=== PATIENT | female | born 1970 | race Caucasian/White ===

== ENCOUNTER 2017-02-09 14:15 | Emergency (ER) | payer OTHER, MEDICAID ==
[2017-02-09] MEDS ORDERED: Sodium Chloride 0.9% 1,000 ML IV ONE (14:52)
[2017-02-09] MEDS ORDERED: Sodium Chloride 0.9% 10 ML Syringe FLUSH PRN (14:52)
[2017-02-09] MEDS ORDERED: Sodium Chloride 0.9% 2.5 ML Syringe FLUSH PRN (14:52)
--- NOTE | 2017-02-09 14:58 | EDM.PDOC ---
<Scarlet Mireles - Last Filed: 02/09/17 18:50> ED HPI GI/ABDOMINAL - General Chief Complaint: Abdominal Pain Stated Complaint: RT SIDE HURTS Time Seen by Provider: 02/09/17 14:16 Source of Information: Reports: Patient History Limitations: Reports: No limitations - History of Present Illness INITIAL COMMENTS - FREE TEXT/NARRATIVE: History of present illness: [] Patient woke up this morning with right-sided abdominal pain that has worsened throughout the day. She feels nauseous but denies any vomiting, diarrhea, fevers, difficulty urinating, vaginal discharge or abnormal bleeding. She does have chills. Patient denies a history of ovarian cysts. Patient has had a cholecystectomy. Review of systems: As per history of present illness and below otherwise all systems reviewed and negative. Past medical history: As per history of present illness and as reviewed below otherwise noncontributory. Surgical history: As per history of present illness and as reviewed below otherwise noncontributory. Social history: No reported history of drug or alcohol abuse. Family history: As per history of present illness and as reviewed below otherwise noncontributory. Physical exam: General: Well developed, well nourished in NAD HEENT: Atraumatic, normocephalic, pupils reactive, negative for conjunctival pallor or scleral icterus, mucous membranes moist, throat clear, neck supple, nontender, trachea midline. Lungs: Clear to auscultation, breath sounds equal bilaterally, chest nontender. Heart: S1S2, regular, negative for clicks, rubs, or JVD. Abdomen: Soft, nondistended, severe tenderness in right lower quadrant and pelvic area. There is no rebound or guarding. Negative for masses or hepatosplenomegaly. Negative for costovertebral tenderness. Pelvis: Stable nontender. Genitourinary: Deferred. Rectal: Deferred. Extremities: Atraumatic, negative for cords or calf pain. Neurovascular unremarkable. Neuro: Awake, alert, oriented. Cranial nerves II through XII unremarkable. Cerebellum unremarkable. Motor and sensory unremarkable throughout. Exam nonfocal. Diagnostics: [] CBC CMP lipase and urine, normal, CT shows a normal appendix small ovarian cyst in 1.9 cm left adrenal nodule. Ultrasound was done and results are pending at this time Therapeutics: [] Patient was IV hydrated and required narcotics for pain control. Impression: [] Plan: [] Definitive disposition and diagnosis as appropriate pending reevaluation and review of above. - Related Data Allergies/ADRs: Allergies Allergy/AdvReac Type Severity Reaction Status Date / Time fentanyl Allergy Hives Verified 02/09/17 15:32 Home Meds: Home Meds Hydrochlorothiazide 37 mg PO DAILY 02/09/17 [History] Losartan [Cozaar] 50 mg PO DAILY 02/09/17 [History] Ondansetron HCl [Zofran] 4 mg PO Q8HR PRN #12 tablet 02/09/17 [Rx] glipiZIDE [Glucotrol XL] 10 mg PO DAILY 02/09/17 [History] metFORMIN HCl [Metformin HCl] 1,000 mg PO BID 02/09/17 [History] traMADol [Ultram] 50 mg PO Q8H PRN #12 tablet 02/09/17 [Rx] Past Medical History Cardiovascular History: Reports: Hypertension Endocrine/Metabolic History: Reports: Diabetes, type II Social & Family History - Tobacco Use Smoking Status *Q: Never Smoker Second Hand Smoke Exposure: No - Recreational Drug Use Recreational Drug Use: No ED ROS GENERAL - Review of Systems Review Of Systems: See Below (See history of present illness) ED EXAM, GI/ABD - Physical Exam Exam: See Below (See history of present illness) Course - Vital Signs Last Recorded V/S: Last Vital Signs Temp 37.3 C 02/09/17 19:17 Pulse 83 02/09/17 19:17 Resp 18 02/09/17 19:17 BP 98/49 L 02/09/17 19:17 Pulse Ox 98 02/09/17 19:17 - Orders/Labs/Meds Orders: Active Orders 24 hr Category Date Time Status Nothing per Oral Now Diet [DIET] Diet 02/09/17 Dinner Active Abdomen Pelvis w Cont [CT] Stat Exams 02/09/17 15:52 Taken Pelvis Non OB Ltd [US] Stat Exams 02/09/17 17:51 Taken HYDROmorphone [Dilaudid] Med 02/09/17 17:57 Active 0.5 mg IVPUSH Q1H PRN Morphine Med 02/09/17 15:50 Active 4 mg IVPUSH ASDIRECTED PRN Sodium Chloride 0.9% [Saline Flush] Med 02/09/17 14:52 Active 10 ml FLUSH ASDIRECTED PRN Sodium Chloride 0.9% [Saline Flush] Med 02/09/17 14:52 Active 2.5 ml FLUSH ASDIRECTED PRN Peripheral IV Insertion Adult [OM.PC] Stat Oth 02/09/17 14:52 Ordered Medication Orders Hydromorphone HCl (Dilaudid) 0.5 mg IVPUSH Q1H PRN PRN Reason: Pain Last Admin: 02/09/17 18:06 Dose: 0.5 mg Morphine Sulfate (Morphine) 4 mg IVPUSH ASDIRECTED PRN PRN Reason: Pain Stop: 02/11/17 15:51 Last Admin: 02/09/17 18:39 Dose: 4 mg Admin: 02/09/17 17:19 Dose: 4 mg Admin: 02/09/17 16:04 Dose: 4 mg Sodium Chloride (Saline Flush) 10 ml FLUSH ASDIRECTED PRN PRN Reason: Keep Vein Open Sodium Chloride (Saline Flush) 2.5 ml FLUSH ASDIRECTED PRN PRN Reason: Keep Vein Open Labs: Laboratory Tests 02/09/17 02/09/17 02/09/17 Range/Units 15:00 15:00 15:10 WBC 7.45 (4.0-11.0) K/uL RBC 4.27 L (4.30-5.90) M/uL Hgb 11.4 L (12.0-16.0) g/dL Hct 35.7 L (36.0-46.0) % MCV 83.6 (80.0-98.0) fL MCH 26.7 L (27.0-32.0) pg MCHC 31.9 (31.0-37.0) g/dL RDW Std Deviation 43.7 (28.0-62.0) fl RDW Coeff of Jaylan 15 (11.0-15.0) % Plt Count 233 (150-400) K/uL MPV 11.00 (7.40-12.00) fL Neut % (Auto) 57.7 (48.0-80.0) % Lymph % (Auto) 25.0 (16.0-40.0) % [place] % (Auto) 10.5 (0.0-15.0) % Eos % (Auto) 6.4 (0.0-7.0) % Baso % (Auto) 0.4 (0.0-1.5) % Neut # 4.3 (1.4-5.7) K/uL Lymph # 1.9 (0.6-2.4) K/uL [place] # 0.8 (0.0-0.8) K/uL Eos # 0.5 (0.0-0.7) K/uL Baso # 0.0 (0.0-0.1) K/uL Nucleated RBC % 0.0 /100WBC Nucleated RBCs # 0 K/uL Sodium 139 (136-146) mmol/L Potassium 3.5 (3.5-5.1) mmol/L Chloride 101 (98-110) mmol/L Carbon Dioxide 25 (21-31) mmol/L BUN 18 (6.0-23.0) mg/dL Creatinine 1.0 (0.6-1.5) mg/dL Est Cr Clr Drug Dosing TNP Estimated GFR (MDRD) 59.2 ml/min Glucose 132 H (60-110) mg/dL Calcium 9.6 (8.8-10.8) mg/dL Total Bilirubin 0.7 (0.1-1.5) mg/dL AST 25 (5-40) IU/L ALT 28 (8-54) IU/L Alkaline Phosphatase 69 (40-150) Total Protein 7.2 (6.0-8.0) g/dL Albumin 4.1 (3.5-5.0) g/dL Globulin 3.1 (2.0-3.5) g/dL Albumin/Globulin Ratio 1.3 (1.3-2.8) Lipase 21 (7-80) U/L Urine Color YELLOW Urine Appearance HAZY Urine pH 6.0 (5.0-8.0) Ur Specific [place] 1.020 (1.001-1.035) Urine Protein NEGATIVE (NEGATIVE) mg/dL Urine Glucose (UA) NEGATIVE (NEGATIVE) mg/dL Urine Ketones NEGATIVE (NEGATIVE) mg/dL Urine Occult Blood NEGATIVE (NEGATIVE) Urine Nitrite NEGATIVE (NEGATIVE) Urine Bilirubin NEGATIVE (NEGATIVE) Urine Urobilinogen 0.2 (<2.0) EU/dL Ur Leukocyte Esterase NEGATIVE (NEGATIVE) Urine RBC 0-1 (0-2/HPF) Urine WBC 0-2 (0-5/HPF) Ur Epithelial Cells MODERATE (NONE-FEW) Urine Bacteria FEW (NEGATIVE) Urine HCG, Qual (NEGATIVE) 02/09/17 Range/Units 15:10 WBC (4.0-11.0) K/uL RBC (4.30-5.90) M/uL Hgb (12.0-16.0) g/dL Hct (36.0-46.0) % MCV (80.0-98.0) fL MCH (27.0-32.0) pg MCHC (31.0-37.0) g/dL RDW Std Deviation (28.0-62.0) fl RDW Coeff of Jaylan (11.0-15.0) % Plt Count (150-400) K/uL MPV (7.40-12.00) fL Neut % (Auto) (48.0-80.0) % Lymph % (Auto) (16.0-40.0) % [place] % (Auto) (0.0-15.0) % Eos % (Auto) (0.0-7.0) % Baso % (Auto) (0.0-1.5) % Neut # (1.4-5.7) K/uL Lymph # (0.6-2.4) K/uL [place] # (0.0-0.8) K/uL Eos # (0.0-0.7) K/uL Baso # (0.0-0.1) K/uL Nucleated RBC % /100WBC Nucleated RBCs # K/uL Sodium (136-146) mmol/L Potassium (3.5-5.1) mmol/L Chloride (98-110) mmol/L Carbon Dioxide (21-31) mmol/L BUN (6.0-23.0) mg/dL Creatinine (0.6-1.5) mg/dL Est Cr Clr Drug Dosing Estimated GFR (MDRD) ml/min Glucose (60-110) mg/dL Calcium (8.8-10.8) mg/dL Total Bilirubin (0.1-1.5) mg/dL AST (5-40) IU/L ALT (8-54) IU/L Alkaline Phosphatase (40-150) Total Protein (6.0-8.0) g/dL Albumin (3.5-5.0) g/dL Globulin (2.0-3.5) g/dL Albumin/Globulin Ratio (1.3-2.8) Lipase (7-80) U/L Urine Color Urine Appearance Urine pH (5.0-8.0) Ur Specific [place] (1.001-1.035) Urine Protein (NEGATIVE) mg/dL Urine Glucose (UA) (NEGATIVE) mg/dL Urine Ketones (NEGATIVE) mg/dL Urine Occult Blood (NEGATIVE) Urine Nitrite (NEGATIVE) Urine Bilirubin (NEGATIVE) Urine Urobilinogen (<2.0) EU/dL Ur Leukocyte Esterase (NEGATIVE) Urine RBC (0-2/HPF) Urine WBC (0-5/HPF) Ur Epithelial Cells (NONE-FEW) Urine Bacteria (NEGATIVE) Urine HCG, Qual NEGATIVE (NEGATIVE) Meds: Medications Generic Name Dose Route Start Last Admin Trade Name Freq PRN Reason Stop Dose Admin Hydromorphone HCl 0.5 mg 02/09/17 17:57 02/09/17 18:06 Dilaudid IVPUSH 0.5 mg Q1H PRN Administration Pain Morphine Sulfate 4 mg 02/09/17 15:50 02/09/17 18:39 Morphine IVPUSH 02/11/17 15:51 4 mg ASDIRECTED PRN Administration Pain Sodium Chloride 10 ml 02/09/17 14:52 Saline Flush FLUSH ASDIRECTED PRN Keep Vein Open Sodium Chloride 2.5 ml 02/09/17 14:52 Saline Flush FLUSH ASDIRECTED PRN Keep Vein Open Discontinued Medications Generic Name Dose Route Start Last Admin Trade Name Freq PRN Reason Stop Dose Admin Sodium Chloride 1,000 mls @ 999 mls/hr 02/09/17 14:52 02/09/17 15:11 Normal Saline IV 02/09/17 15:52 999 mls/hr .Bolus ONE Administration Iopamidol 100 ml 02/09/17 16:17 Isovue Multipack-370 (76%) IVPUSH 02/09/17 16:18 ONETIME STA Ketorolac Tromethamine 30 mg 02/09/17 17:18 02/09/17 17:26 Toradol IVPUSH 02/09/17 17:19 30 mg ONETIME ONE Administration Ondansetron HCl 4 mg 02/09/17 15:51 02/09/17 15:59 Zofran IVPUSH 02/09/17 15:52 4 mg ONETIME ONE Administration Ondansetron HCl 4 mg 02/09/17 19:12 02/09/17 19:16 Zofran IVPUSH 02/09/17 19:13 4 mg ONETIME ONE Administration Departure - Departure Time of Disposition: 18:51 Disposition: Home, Self-Care 01 Clinical Impression: Abdominal pain Qualifiers: Abdominal location: right lower quadrant Qualified Code(s): R10.31 - Right lower quadrant pain Prescriptions: Ondansetron HCl [Zofran] 4 mg PO Q8HR PRN #12 tablet PRN Reason: Nausea traMADol [Ultram] 50 mg PO Q8H PRN #12 tablet PRN Reason: Pain Referrals: PCP,None [Primary Care Provider] - Forms: ED Department Discharge <Vandana Hayes - Last Filed: 02/09/17 19:52> ED HPI GI/ABDOMINAL - History of Present Illness INITIAL COMMENTS - FREE TEXT/NARRATIVE: Discussed the report with the client and her . Have contacted Dr. Masters who has been accepted patient she is to call his office in the morning and he will see her tomorrow. Pain medication hydrocodone 10/325 one every 6 hours when necessary pain Zofran ODT 4 mg one every 6 hours as needed for nausea Call first thing tomorrow morning for Dr. Sonam ERIC [facility] [address] [place] [id number] Departure - Departure Condition: good
[2017-02-09 15:38] LABS: CHLORIDE,CL 101 mmol/L (98-110); SODIUM,NA 139 mmol/L (136-146)
[2017-02-09] MEDS ORDERED: Ondansetron 4 MG/2 ML SDV IVPUSH ONE ×2 (15:51→19:12)
[2017-02-09] MEDS: Morphine 2 MG/ML Syringe IVPUSH PRN ×3 (16:04→18:39)
[2017-02-09] MEDS ORDERED: Iopamidol 755 MG/ML 500 ML Multipack Bottle IVPUSH STA (16:17)
[2017-02-09] MEDS ORDERED: Ketorolac 30 MG/ML SDV IVPUSH ONE (17:18)
[2017-02-09] MEDS ORDERED: HYDROmorphone 1 MG/ML Syringe IVPUSH PRN (17:57)
[2017-02-09 20:22] VITALS: BP 122/63
--- NOTE | 2017-02-12 15:06 | CT ---
EXAM DATE: 02/09/17 PATIENT'S AGE: 46 Patient: MOSES KENT Facility: [place], [place] Site . Site : 1970 Study: CT Abdomen/Pelvis [id number]/13/2017 4:48:37 PM Ordering Physician: Chi Novak Final Report: INDICATION: RLQ PAIN TECHNIQUE: CT scan of the abdomen and pelvis with 100 cc of Isovue-370 given intravenously. FINDINGS: The lung bases are unremarkable. No focal abnormalities identified in the visualized portions of the liver, spleen, pancreas, and right adrenal gland. 1.9 cm left adrenal nodule. Normal appearance of the kidneys. No hydronephrosis. No uroliths. 3.0 cm cyst extending off the right ovary. 2.3 cm cyst in the left ovary. The GI tract is incompletely distended but shows no gross abnormalities. The stomach and GE junction are not well assessed. Normal appendix. Cholecystectomy changes. No bile duct dilation. No retroperitoneal, pelvic sidewall, or mesenteric adenopathy. Mild atherosclerotic vascular calcifications. IMPRESSION: 1. Normal appendix. 2. Small ovarian cysts. 3. 1.9 cm left adrenal nodule. Recommend dedicated adrenal CT scan on a routine basis. Dictated by Curry Chavarria MD @ 02/09/2017 5:06:11 PM Dictated by: Curry Chavarria MD @ 02/09/2017 17:06:20 (Electronic Signature) Report Signed by Proxy and Original Signed Document filed in the Medical Record. [facility]
--- NOTE | 2017-02-12 15:44 | US ---
EXAM DATE: 02/09/17 PATIENT'S AGE: 46 Patient: MOSES KENT Facility: [place], [place] Site . Site : 1970 Study: US Pelvis [id number]/13/2017 6:33:49 PM Ordering Physician: Chi Novak Final Report: INDICATION: Right lower quadrant pain. TECHNIQUE: Ultrasound pelvis complete transabdominal and transvaginal. COMPARISON: CT of the abdomen and pelvis 02/09/2017. FINDINGS: Transabdominal as well as transvaginal imaging was formed. Transvaginal imaging was performed to better evaluate the endometrium and ovaries. The uterus is enlarged and measures 14.5 x 8.0 x 7.1 cm. The endometrium is thickened measuring up to 2.9 cm in thickness. The left ovary measures 4.3 x 3.6 x 3.0 cm and contains 2 dominant follicles measuring less than 2 cm each. The right ovary was difficult to visualize and measured 3.7 x 3.2 x 2.9 cm. Probable dominant 2 cm follicle or cyst. No free fluid or adnexal masses. Nabothian cysts noted within the cervix. Doppler evaluation was performed of the ovaries. Arterial waveform confirmed within the left ovary. Unable to confirm blood flow within the right ovary. This could be technical because of the location. IMPRESSION: 1. The right ovary was difficult to visualize. Probable 2 cm dominant follicle. Could not confirm blood flow within the right ovary by Doppler, but the right ovary is not particularly enlarged. I suspect this is technical. Correlate with clinical symptoms. If necessary, repeat examination could be performed. 2. Thickened endometrium of uncertain etiology. Short interval followup is recommended. Neoplastic etiology is not excluded. 3. Enlarged uterus. Dictated by Nilton German MD @ 02/09/2017 7:15:46 PM Dictated by: Nilton German MD @ 02/09/2017 19:16:19 (Electronic Signature) Report Signed by Proxy and Original Signed Document filed in the Medical Record. [facility]
== END 2017-02-09 20:18 | disposition home or self-care (01) ==
LOC: MW.ED 14:15
DX: R10.31 Right lower quadrant pain (principal); R68.83 Chills (without fever); R11.0 Nausea; I10 Essential (primary) hypertension; E11.9 Type 2 diabetes mellitus without complications; Z88.6 Allergy status to analgesic agent; Z79.899 Other long term (current) drug therapy
CPT/HCPCS: 36415; 74177; 76857; 80053; 81001; 81025; 83690; 85025; 96361; 96374; 96375; 96376; 99284; J1170; J1885; J2270; J2405; J7040

== ENCOUNTER → 2017-02-10 | Outpatient (CLI) | payer OTHER, MEDICAID | LOC: MW.CHOBGYN 10:53 | PROVIDERS: ATTEND Obstetrics & Gynecology | DX: Z12.4 Encounter for screening for malignant neoplasm of cervix (principal); R93.8 Abnormal findings on diagnostic imaging of other specified body structures | CPT/HCPCS: 88305; G0145 ==

== ENCOUNTER 2017-02-26 07:40 | Day surgery (SDC) | payer MEDICAID, OTHER ==
[~2017-02-26 07:40] MED LIST: Lactated Ringers 1,000 ML IV SCH; Sodium Chloride 0.9% 10 ML Syringe FLUSH PRN; Sodium Chloride 0.9% 2.5 ML Syringe FLUSH PRN; ceFAZolin 2 GM in Premix Bag 1 BAG IV ONE
[2017-02-26] MEDS ORDERED: Rocuronium 10 MG/ML 10 ML Syringe ONE (08:53)
[2017-02-26] MEDS ORDERED: Lidocaine 2% 5 ML SDV ONE (08:53)
[2017-02-26] MEDS ORDERED: Ondansetron 4 MG/2 ML SDV ONE (08:53)
--- NOTE | 2017-02-26 08:53 | PCM.PREANE ---
Preanesthetic Assessment - Anesthesia/Transfusion/Family Hx Anesthesia History: Prior Anesthesia Reaction Type of Anesthesia Reaction: Allergy, Other (see below) (states allergy to Fentanyl (hives), can take dilaudid and morphine without problem.) Family History of Anesthesia Reaction: No - Review of Systems General: No Symptoms Pulmonary: No Symptoms Cardiovascular: No Symptoms Gastrointestinal: No symptoms Neurological: No Symptoms Other: Reports: None - Physical Assessment NPO Status Date: 02/25/17 O2 Sat by Pulse Oximetry: 98 Respiratory Rate: 16 Vital Signs: Last Vital Signs Temp 36.8 C 02/26/17 08:19 Pulse 72 02/26/17 08:19 Resp 16 02/26/17 08:19 BP 133/79 02/26/17 08:19 Pulse Ox 98 02/26/17 08:19 Height: 1.63 m Weight: 102.512 kg ASA Class: 2 Mental Status: Alert & Oriented x3 Airway Class: Mallampati = 2 Dentition: Reports: Normal Dentition ROM/Head Extension: Full Lungs: Clear to auscultation, Normal respiratory effort Cardiovascular: Regular Rate, Regular Rhythm - Lab Values: Laboratory Last Values WBC 5.46 K/uL (4.0-11.0) 02/25/17 10:32 RBC 4.33 M/uL (4.30-5.90) 02/25/17 10:32 Hgb 11.8 g/dL (12.0-16.0) L 02/25/17 10:32 Hct 36.8 % (36.0-46.0) 02/25/17 10:32 MCV 85.0 fL (80.0-98.0) 02/25/17 10:32 MCH 27.3 pg (27.0-32.0) 02/25/17 10:32 MCHC 32.1 g/dL (31.0-37.0) 02/25/17 10:32 RDW Std Deviation 47.1 fl (28.0-62.0) 02/25/17 10:32 RDW Coeff of Jaylan 15 % (11.0-15.0) 02/25/17 10:32 Plt Count 221 K/uL (150-400) 02/25/17 10:32 MPV 10.90 fL (7.40-12.00) 02/25/17 10:32 Nucleated RBC % 0.0 /100WBC 02/25/17 10:32 Nucleated RBCs # 0 K/uL 02/25/17 10:32 Sodium 139 mmol/L (136-146) 02/25/17 10:32 Potassium 4.0 mmol/L (3.5-5.1) 02/25/17 10:32 Chloride 103 mmol/L (98-110) 02/25/17 10:32 Carbon Dioxide 25 mmol/L (21-31) 02/25/17 10:32 BUN 18 mg/dL (6.0-23.0) 02/25/17 10:32 Creatinine 1.0 mg/dL (0.6-1.5) 02/25/17 10:32 Est Cr Clr Drug Dosing 59.41 mL/min 02/25/17 10:32 Estimated GFR (MDRD) 59.2 ml/min 02/25/17 10:32 Glucose 170 mg/dL (60-110) H 02/25/17 10:32 POC Glucose 130 mg/dL (60-110) H 02/26/17 08:27 Calcium 9.6 mg/dL (8.8-10.8) 02/25/17 10:32 HCG, Qual NEGATIVE (NEG) 02/25/17 10:32 Blood Type O NEGATIVE 02/25/17 10:32 Antibody Screen NEGATIVE 02/25/17 10:32 - Allergies Allergies/Adverse Reactions: Allergies Allergy/AdvReac Type Severity Reaction Status Date / Time fentanyl Allergy Hives Verified 02/09/17 15:32 - Anesthesia Plan Pre-Op Medication Ordered: None - Acknowledgements Anesthesia Type Planned: General Anesthesia Pt an Appropriate Candidate for the Planned Anesthesia: Yes Alternatives and Risks of Anesthesia Discussed w Pt/Guardian: Yes Pt/Guardian Understands and Agrees with Anesthesia Plan: Yes PreAnesthesia Questionnaire Cardiovascular History: Reports: Hypertension Respiratory History: Reports: Asthma, Other (see below) Other Respiratory History: seasonal asthma Gastrointestinal History: Reports: None Genitourinary History: Reports: Renal calculus Other Genitourinary History: hx kidney stones, stress incontinence 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: Reports: Endocrine/Metabolic History: Reports: Diabetes, type II, Obesity/BMI 30+ - Past Surgical History Head Surgeries/Procedures: Reports: None HEENT Surgical History: Reports: Tonsillectomy GI Surgical History: Reports: Cholecystectomy Musculoskeletal Surgical History: Reports: Shoulder surgery - SUBSTANCE USE Smoking Status *Q: Never Smoker Second Hand Smoke Exposure: No Recreational Drug Use History: No - HOME MEDS Home Medications: Home Meds glipiZIDE [Glucotrol XL] 10 mg PO DAILY 02/09/17 [History] metFORMIN HCl [Metformin HCl] 1,000 mg PO BID 02/09/17 [History] Albuterol Sulfate [Proair Hfa] 1 - 2 puff INH ASDIRECTED PRN 02/23/17 [History] Losartan/Hydrochlorothiazide [Losartan-HCTZ 50-12.5 MG] 1 tab PO BEDTIME [History] rOPINIRole HCl [Requip] 2 mg PO BEDTIME 02/23/17 [History] - CURRENT (IN HOUSE) MEDS Current Meds: Current Medications Lactated Ringer's (Ringers, Lactated) 1,000 mls @ 125 mls/hr IV ASDIRECTED JEFF Last Admin: 02/26/17 08:20 Dose: 125 mls/hr Sodium Chloride (Saline Flush) 10 ml FLUSH ASDIRECTED PRN PRN Reason: Keep Vein Open Sodium Chloride (Saline Flush) 2.5 ml FLUSH ASDIRECTED PRN PRN Reason: Keep Vein Open Discontinued Medications Cefazolin Sodium/Dextrose 2 gm (/ Premix) 50 mls @ 100 mls/hr IV ONETIME ONE Stop: 02/25/17 08:49 Preanesthetic Assessment - PHYSICAL ASSESSMENT O2 Sat by Pulse Oximetry: 98 RR: 16 Vital Signs: Last Vital Signs Temp 36.8 C 02/26/17 08:19 Pulse 72 02/26/17 08:19 Resp 16 02/26/17 08:19 BP 133/79 02/26/17 08:19 Pulse Ox 98 02/26/17 08:19 Height: 1.63 m Weight: 102.512 kg - LAB Values: Laboratory Last Values WBC 5.46 K/uL (4.0-11.0) 02/25/17 10:32 RBC 4.33 M/uL (4.30-5.90) 02/25/17 10:32 Hgb 11.8 g/dL (12.0-16.0) L 02/25/17 10:32 Hct 36.8 % (36.0-46.0) 02/25/17 10:32 MCV 85.0 fL (80.0-98.0) 02/25/17 10:32 MCH 27.3 pg (27.0-32.0) 02/25/17 10:32 MCHC 32.1 g/dL (31.0-37.0) 02/25/17 10:32 RDW Std Deviation 47.1 fl (28.0-62.0) 02/25/17 10:32 RDW Coeff of Jaylan 15 % (11.0-15.0) 02/25/17 10:32 Plt Count 221 K/uL (150-400) 02/25/17 10:32 MPV 10.90 fL (7.40-12.00) 02/25/17 10:32 Nucleated RBC % 0.0 /100WBC 02/25/17 10:32 Nucleated RBCs # 0 K/uL 02/25/17 10:32 Sodium 139 mmol/L (136-146) 02/25/17 10:32 Potassium 4.0 mmol/L (3.5-5.1) 02/25/17 10:32 Chloride 103 mmol/L (98-110) 02/25/17 10:32 Carbon Dioxide 25 mmol/L (21-31) 02/25/17 10:32 BUN 18 mg/dL (6.0-23.0) 02/25/17 10:32 Creatinine 1.0 mg/dL (0.6-1.5) 02/25/17 10:32 Est Cr Clr Drug Dosing 59.41 mL/min 02/25/17 10:32 Estimated GFR (MDRD) 59.2 ml/min 02/25/17 10:32 Glucose 170 mg/dL (60-110) H 02/25/17 10:32 POC Glucose 130 mg/dL (60-110) H 02/26/17 08:27 Calcium 9.6 mg/dL (8.8-10.8) 02/25/17 10:32 HCG, Qual NEGATIVE (NEG) 02/25/17 10:32 Blood Type O NEGATIVE 02/25/17 10:32 Antibody Screen NEGATIVE 02/25/17 10:32 - ALLERGIES Allergies/Adverse Reactions: Allergies Allergy/AdvReac Type Severity Reaction Status Date / Time fentanyl Allergy Hives Verified 02/09/17 15:32
[2017-02-26] MEDS ORDERED: Midazolam 1 MG/ML 2 ML SDV ONE (08:54)
[2017-02-26] MEDS ORDERED: Propofol 200 MG/20 ML SDV ONE (08:54)
[2017-02-26] MEDS ORDERED: Morphine 10 MG/ML Syringe ONE ×2 (08:57→09:45)
[2017-02-26] MEDS ORDERED: HYDROmorphone 2 MG/ML Syringe ONE (08:57)
[2017-02-26] MEDS ORDERED: Water For Injection, Sterile 20 ML ONE (08:58)
[2017-02-26] MEDS ORDERED: Fluorescein 5 ML Vial ONE (09:36)
[2017-02-26] MEDS ORDERED: Octyl 2-Cyanoacrylate 1 Tube ONE (09:36)
[2017-02-26] MEDS ORDERED: Succinylcholine/Normal Saline 200 MG/10 ML Syringe ONE (09:46)
[2017-02-26] MEDS ORDERED: Sodium Chloride 0.9% 20 ML ONE (09:47)
[2017-02-26] MEDS ORDERED: ceFAZolin 1 GM Vial ONE (09:47)
[2017-02-26] MEDS ORDERED: Furosemide 40 MG/4 ML VIAL ONE (09:49)
[2017-02-26] MEDS ORDERED: Neostigmine Methylsulfate 1 MG/ML 5 ML Syringe ONE (09:59)
[2017-02-26] MEDS ORDERED: Calcium Gluconate 10% 1 GM/10 ML SDV ONE (11:32)
[2017-02-26] MEDS ORDERED: Promethazine 25 MG/ML SDV IM PRN (12:18)
[2017-02-26] MEDS ORDERED: Morphine 4 MG/ML Syringe IVPUSH PRN (12:18)
--- NOTE | 2017-02-26 12:25 | PCM.OPNOTE ---
- General Post-Op/Procedure Note Date of Surgery/Procedure: 02/26/17 Operative Procedure(s): TLH BSO cysto Findings: Fibroid uterus Pre Op Diagnosis: menometrorraghia Post-Op Diagnosis: Same Anesthesia Technique: General ET tube Primary Surgeon: Codey Masters Pet House Sitter: Mayra Moss EBL in mLs: 2,000 Complications: Bleeding from the R .Uterin vessles and the R side of the Vaginal cuff. Condition: Good
[2017-02-26] MEDS ORDERED: Morphine 2 MG/ML Syringe IVPUSH PRN (12:41)
[2017-02-26 12:54] LABS: CHLORIDE,CL 108 mmol/L (98-110)
[2017-02-26] MEDS: Ketorolac 30 MG/ML SDV IVPUSH PRN ×2 (13:00→18:07)
[2017-02-26 13:06] LABS: SODIUM,NA 138 mmol/L (136-146)
[2017-02-26] MEDS ORDERED: diphenhydrAMINE 50 MG/ML SDV ONE (13:44)
[2017-02-26] MEDS ORDERED: diphenhydrAMINE 50 MG/ML SDV IVPUSH SCH (13:45)
--- NOTE | 2017-02-26 13:53 | PCM.POSTAN ---
POST ANESTHESIA ASSESSMENT - MENTAL STATUS Mental Status: alert, oriented - RESPIRATORY Respiratory Status: respiratory rate WNL, airway patent, O2 saturation stable, supplemental oxygen - CARDIOVASCULAR CV Status: pulse rate WNL, blood pressure stable - GASTROINTESTINAL GI Status: no symptoms - PAIN Pain Score: 6 (Pt states tolerable) - POST OP HYDRATION Hydration Status: adequate & stable - OBSERVATIONS Free Text/Narrative:: Pt itching - benadryl ordered. Pain controlled to a "tolerable" level per pt. Vitals stable at this time.
[2017-02-26] MEDS ORDERED: Nalbuphine 10 MG/1 ML Vial IVPUSH ONE (14:08)
[2017-02-26] MEDS: Acetaminophen/oxyCODONE 325-5 MG Tab PO PRN ×3 (16:18→22:26)
[2017-02-26] MEDS: Ondansetron 4 MG/2 ML SDV IVPUSH PRN (17:35)
--- NOTE | 2017-02-26 20:58 | OR ---
SURGEON: Codey Masters MD DATE OF PROCEDURE: PREOPERATIVE DIAGNOSES: Menometrorrhagia, fibroid uterus, endometrial hyperplasia without atypia by endometrial biopsy. POSTOPERATIVE DIAGNOSES: Menometrorrhagia, fibroid uterus, endometrial hyperplasia without atypia by endometrial biopsy. OPERATION PERFORMED: Total laparoscopic hysterectomy, laparoscopic bilateral salpingo-oophorectomy, laparoscopic control of right side pelvic wall bleeding, and cystoscopy. CREDIT REVIEW ANALYST: Mayra Moss. ANESTHESIA: General endotracheal intubation by Angel Mehta and Dr. Gibson. ESTIMATED BLOOD LOSS: 2000 mL. Replacement is 2 units of packed cells during the operative procedures. PROCEDURE IN DETAIL: The patient was brought to the OR, properly identified, and after adequate level of general anesthesia, the patient was placed in lithotomy position, prepped and draped in sterile fashion as usual. A weighted speculum was placed in the vagina. The VCare manipulator placed in the uterus for manipulation. The Morse catheter was placed in the bladder for drainage and the operation shifted abdominally. Stab wound done beneath the umbilicus. The Veress needle was placed in the peritoneal cavity and that cavity insufflated with 6 L of carbon dioxide. The skin incision enlarged to accommodate the trocar and utilizing a Visiport technique, the peritoneal cavity was entered. A 10-12 trocar placed in the bladder in the left iliac fossa and 5-mm trocar in the right iliac fossa. Later on, we needed to place one 5 mm trocar suprapubically. The procedure was started by identifying the landmark of the pelvis and started on the left side. The superior pedicle was coagulated and transected using the TABITHA-7 Harmonic scalpel. The tubes and ovary included with the specimen. The round ligament is transected in the same manner and then the anterior leaf of the broad ligament dissected downward medially, pushing the bladder completely away from the operative field. At this time, I repositioned the VCare manipulator to feel the VCare manipulator. Then on the left side, the superior pedicle was taken by using the TABITHA Harmonic scalpel and the anterior leaf of the broad ligament dissected downward medially and the uterine vessel is secured at this time very close to the uterus using the Harmonic scalpel; however, there started some sort of her bleeding and from the left pelvic sidewall and it was felt to be probably from the uterine vessel and visualization became low, but not clear laparoscopically, so I shifted that vaginally and weighted speculum was placed in the vagina and then circular incision in the vaginal mucosa was done and utilizing the electrocautery, the posterior cul-de-sac was entered posteriorly. The anterior cul-de-sac was already anterior and then circular incision in the round vaginal mucosa detaching the cervix from its attachment to the vagina and then the cervix,uterus, and tubes and ovary were removed vaginally and copious amount of suction of the blood and then I proceeded to close the vaginal cuff vaginally using 2-0 Vicryl interrupted suture. After that, the operation shifted abdominally and after thorough suctioning of all of the blood from the peritoneal cavity, it was noticed that there was an area of bleeding from the superior pedicles on the right side and that was picked individually and an Endoloop was applied to it and the bleeding stopped and then it was noticed that there was some area of bleeding in the right pelvic sidewall and then with thorough dissection and irrigation exposing the bleeder, making sure that the ureter is away from harm's way. This bleeder was picked individually and again an Endoloop was applied to the bleeder which is the uterine artery and then the bleeding stopped. Once, I applied the Endoloop, the bleeding completely stopped and then thorough irrigation of the entire abdominal field shows no oozing, no bleeding at this time; however I had to ask the anesthesiologist to give the patient fluorescein and after deflating the abdomen, cystoscopy performed. The bladder was intact. Both ureteric orifices were seen with the dye coming from them. Thus, the patency of both ureters verified and then after I deflated the bladder with the Morse catheter, then reinspection was done laparoscopically, and there was no oozing, no bleeding. So at this time, the procedure ended, and I forgo doing the TVT at this time, because the patient is being on the operative table for an excessive two and half hour. The instrument and sponge count were correct. The patient tolerated the procedure well, went to recovery room in stable and general condition. RICK LEON /[id number]
[2017-02-27] MEDS: Ketorolac 30 MG/ML SDV IVPUSH PRN (02:45)
[2017-02-27] MEDS: Acetaminophen/oxyCODONE 325-5 MG Tab PO PRN (09:37)
[2017-02-27 09:52] VITALS: BP 119/57
--- NOTE | 2017-02-27 10:59 | PCM.SURGPN ---
- General Info Date of Service: 02/27/17 POD#: 1 Functional Status: Reports: pain controlled - Review of Systems General: Reports: No Symptoms HEENT: Reports: no symptoms Pulmonary: Reports: no symptoms Cardiovascular: Reports: No Symptoms Gastrointestinal: Reports: No symptoms Genitourinary: Reports: no symptoms Musculoskeletal: Reports: no symptoms Skin: Reports: no symptoms Neurological: Reports: No Symptoms Psychiatric: Reports: no symptoms - Patient Data Vitals - most recent: Last Vital Signs Temp 37.2 C 02/27/17 09:20 Pulse 81 02/27/17 09:20 Resp 16 02/27/17 09:20 BP 119/57 L 02/27/17 09:20 Pulse Ox 94 L 02/27/17 09:20 Weight - most recent: 102.512 kg I&O - last 24 hours: Intake & Output 02/26/17 02/27/17 02/27/17 22:59 06:59 14:59 Output Total 1150 Balance -1150 Lab Results last 24 hrs: Laboratory Results - last 24 hr 02/25/17 02/25/17 02/26/17 Range/Units 10:32 10:32 11:53 WBC (4.0-11.0) K/uL RBC (4.30-5.90) M/uL Hgb (12.0-16.0) g/dL Hct (36.0-46.0) % MCV (80.0-98.0) fL MCH (27.0-32.0) pg MCHC (31.0-37.0) g/dL RDW Std Deviation (28.0-62.0) fl RDW Coeff of Jaylan (11.0-15.0) % Plt Count (150-400) K/uL MPV (7.40-12.00) fL Neut % (Auto) (48.0-80.0) % Lymph % (Auto) (16.0-40.0) % Avery % (Auto) (0.0-15.0) % Eos % (Auto) (0.0-7.0) % Baso % (Auto) (0.0-1.5) % Neut # (Auto) (1.4-5.7) K/uL Lymph # (Auto) (0.6-2.4) K/uL Avery # (Auto) (0.0-0.8) K/uL Eos # (Auto) (0.0-0.7) K/uL Baso # (Auto) (0.0-0.1) K/uL Nucleated RBC % /100WBC Nucleated RBCs # K/uL INR (0.86-1.11) APTT (18.6-31.3) SEC Fibrinogen (215-411) mg/dL Sodium (136-146) mmol/L Potassium (3.5-5.1) mmol/L Chloride (98-110) mmol/L Carbon Dioxide (21-31) mmol/L BUN (6.0-23.0) mg/dL Creatinine (0.6-1.5) mg/dL Est Cr Clr Drug Dosing mL/min Estimated GFR (MDRD) ml/min Glucose (60-110) mg/dL POC Glucose 195 H (60-110) mg/dL Calcium (8.8-10.8) mg/dL Blood Type O NEGATIVE Antibody Screen NEGATIVE Crossmatch See Detail See Detail 02/26/17 02/26/17 02/26/17 Range/Units 12:08 12:08 12:08 WBC 9.41 (4.0-11.0) K/uL RBC 4.01 L (4.30-5.90) M/uL Hgb 11.4 L (12.0-16.0) g/dL Hct 34.6 L (36.0-46.0) % MCV 86.3 (80.0-98.0) fL MCH 28.4 (27.0-32.0) pg MCHC 32.9 (31.0-37.0) g/dL RDW Std Deviation 47.3 (28.0-62.0) fl RDW Coeff of Jaylan 15 (11.0-15.0) % Plt Count 199 (150-400) K/uL MPV 11.30 (7.40-12.00) fL Neut % (Auto) 64.1 (48.0-80.0) % Lymph % (Auto) 24.7 (16.0-40.0) % Avery % (Auto) 8.1 (0.0-15.0) % Eos % (Auto) 2.8 (0.0-7.0) % Baso % (Auto) 0.3 (0.0-1.5) % Neut # (Auto) 6.0 H (1.4-5.7) K/uL Lymph # (Auto) 2.3 (0.6-2.4) K/uL Avery # (Auto) 0.8 (0.0-0.8) K/uL Eos # (Auto) 0.3 (0.0-0.7) K/uL Baso # (Auto) 0.0 (0.0-0.1) K/uL Nucleated RBC % 0.0 /100WBC Nucleated RBCs # 0 K/uL INR 1.09 (0.86-1.11) APTT 24.5 (18.6-31.3) SEC Fibrinogen 232 (215-411) mg/dL Sodium 138 (136-146) mmol/L Potassium 4.2 (3.5-5.1) mmol/L Chloride 108 (98-110) mmol/L Carbon Dioxide 17 L (21-31) mmol/L BUN 14 (6.0-23.0) mg/dL Creatinine 0.8 (0.6-1.5) mg/dL Est Cr Clr Drug Dosing 74.26 mL/min Estimated GFR (MDRD) > 60.0 ml/min Glucose 208 H (60-110) mg/dL POC Glucose (60-110) mg/dL Calcium 8.0 L (8.8-10.8) mg/dL Blood Type Antibody Screen Crossmatch 02/27/17 02/27/17 Range/Units 05:12 05:12 WBC 9.26 (4.0-11.0) K/uL RBC 3.36 L (4.30-5.90) M/uL Hgb 9.7 L (12.0-16.0) g/dL Hct 28.9 L (36.0-46.0) % MCV 86.0 (80.0-98.0) fL MCH 28.9 (27.0-32.0) pg MCHC 33.6 (31.0-37.0) g/dL RDW Std Deviation 47.6 (28.0-62.0) fl RDW Coeff of Jaylan 15 (11.0-15.0) % Plt Count 185 (150-400) K/uL MPV 11.10 (7.40-12.00) fL Neut % (Auto) 74.7 (48.0-80.0) % Lymph % (Auto) 15.9 L (16.0-40.0) % Avery % (Auto) 7.8 (0.0-15.0) % Eos % (Auto) 1.5 (0.0-7.0) % Baso % (Auto) 0.1 (0.0-1.5) % Neut # (Auto) 6.9 H (1.4-5.7) K/uL Lymph # (Auto) 1.5 (0.6-2.4) K/uL Avery # (Auto) 0.7 (0.0-0.8) K/uL Eos # (Auto) 0.1 (0.0-0.7) K/uL Baso # (Auto) 0.0 (0.0-0.1) K/uL Nucleated RBC % 0.0 /100WBC Nucleated RBCs # 0 K/uL INR (0.86-1.11) APTT (18.6-31.3) SEC Fibrinogen (215-411) mg/dL Sodium 137 (136-146) mmol/L Potassium 3.5 (3.5-5.1) mmol/L Chloride 102 (98-110) mmol/L Carbon Dioxide 24 (21-31) mmol/L BUN 17 (6.0-23.0) mg/dL Creatinine 1.0 (0.6-1.5) mg/dL Est Cr Clr Drug Dosing 59.41 mL/min Estimated GFR (MDRD) 59.2 ml/min Glucose 146 H (60-110) mg/dL POC Glucose (60-110) mg/dL Calcium 7.9 L (8.8-10.8) mg/dL Blood Type Antibody Screen Crossmatch Med Orders - Current: Current Medications Diphenhydramine HCl (Benadryl) 25 mg IVPUSH .ONETIME JEFF Last Admin: 02/26/17 13:47 Dose: 25 mg Lactated Ringer's (Ringers, Lactated) 1,000 mls @ 125 mls/hr IV ASDIRECTED JEFF Last Admin: 02/26/17 08:20 Dose: 125 mls/hr Ketorolac Tromethamine (Toradol) 30 mg IVPUSH Q6H PRN PRN Reason: Pain (severe 7-10) Stop: 03/03/17 12:18 Last Admin: 02/27/17 02:45 Dose: 30 mg Morphine Sulfate (Morphine) 4 mg IVPUSH Q2H PRN PRN Reason: Pain (severe 7-10) Last Admin: 02/27/17 04:41 Dose: 4 mg Morphine Sulfate (Morphine) 2 mg IVPUSH .Q5MIN PRN PRN Reason: Pain Stop: 03/02/17 12:42 Last Admin: 02/26/17 13:40 Dose: 2 mg Ondansetron HCl (Zofran) 4 mg IVPUSH Q6H PRN PRN Reason: Nausea/Vomiting Last Admin: 02/26/17 17:35 Dose: 4 mg Oxycodone/Acetaminophen (Percocet 325-5 Mg) 2 tab PO Q4H PRN PRN Reason: Pain (moderate 4-6) Last Admin: 02/27/17 09:37 Dose: 2 tab Promethazine HCl (Phenergan) 25 mg IM Q6H PRN PRN Reason: Nausea/Vomiting Last Admin: 02/26/17 18:07 Dose: 25 mg Sodium Chloride (Saline Flush) 10 ml FLUSH ASDIRECTED PRN PRN Reason: Keep Vein Open Sodium Chloride (Saline Flush) 2.5 ml FLUSH ASDIRECTED PRN PRN Reason: Keep Vein Open Discontinued Medications Calcium Gluconate (Calcium Gluconate) Confirm Administered Dose 1 gm .ROUTE .STK -MED ONE Stop: 02/26/17 11:33 Cefazolin Sodium (Ancef) Confirm Administered Dose 2 gm .ROUTE .STK-MED ONE Stop: 02/26/17 09:48 Diphenhydramine HCl (Benadryl) Confirm Administered Dose 50 mg .ROUTE .STK-MED ONE Stop: 02/26/17 13:45 Last Admin: 02/27/17 02:13 Dose: Not Given Fluorescein Sodium (Ak-Fluor) Confirm Administered Dose 5 ml .ROUTE .STK-MED ONE Stop: 02/26/17 09:37 Furosemide (Lasix) Confirm Administered Dose 40 mg .ROUTE .STK-MED ONE Stop: 02/26/17 09:50 Glycopyrrolate () Confirm Administered Dose 1 mg .ROUTE .STK-MED ONE Stop: 02/26/17 10:00 Hydromorphone HCl (Dilaudid) Confirm Administered Dose 2 mg .ROUTE .STK-MED ONE Stop: 02/26/17 08:58 Cefazolin Sodium/Dextrose 2 gm (/ Premix) 50 mls @ 100 mls/hr IV ONETIME ONE Stop: 02/25/17 08:49 Sterile Water (Sterile Water For Injection) Confirm Administered Dose 20 mls @ as directed .ROUTE .STK-MED ONE Stop: 02/26/17 08:59 Sodium Chloride (Normal Saline) Confirm Administered Dose 20 mls @ as directed .ROUTE .STK-MED ONE Stop: 02/26/17 09:48 Lidocaine (Xylocaine-Mpf 2%) Confirm Administered Dose 5 ml .ROUTE .ST-MED ONE Stop: 02/26/17 08:54 Midazolam HCl (Versed 1 Mg/Ml) Confirm Administered Dose 2 mg .ROUTE .STK-MED ONE Stop: 02/26/17 08:55 Morphine Sulfate (Morphine) Confirm Administered Dose 10 mg .ROUTE .ST-MED ONE Stop: 02/26/17 08:58 Morphine Sulfate (Morphine) Confirm Administered Dose 10 mg .ROUTE .ST-MED ONE Stop: 02/26/17 09:46 Nalbuphine HCl (Nubain) 2.5 mg IVPUSH ONETIME ONE Stop: 02/26/17 14:09 Last Admin: 02/26/17 14:29 Dose: 2.5 mg Neostigmine Methylsulfate (Neostigmine) Confirm Administered Dose 5 mg .ROUTE .STK-MED ONE Stop: 02/26/17 10:00 Octyl Cyanoacrylate (Dermabond Advance) Confirm Administered Dose 1 applic .ROUTE .ST-MED ONE Stop: 02/26/17 09:37 Ondansetron HCl (Zofran) Confirm Administered Dose 4 mg .ROUTE .STK-MED ONE Stop: 02/26/17 08:54 Propofol (Diprivan 20 Ml) Confirm Administered Dose 200 mg .ROUTE .STK-MED ONE Stop: 02/26/17 08:55 Rocuronium [place] (Zemuron) Confirm Administered Dose 100 mg .ROUTE .STK-MED ONE Stop: 02/26/17 08:54 Succinylcholine Chloride (Succinylcholine In Ns Pf) Confirm Administered Dose 200 mg .ROUTE .STK-MED ONE Stop: 02/26/17 09:47 - Exam Wound/Incisions: healing well General: alert, oriented HEENT: Pupils equal Neck: supple Lungs: Clear to auscultation, Normal respiratory effort Cardiovascular: Regular Rate, Regular Rhythm Abdomen: bowel sounds present, soft, no tenderness, no distension Extremities: no edema Skin: warm, dry, intact Neurological: no new focal deficit Psy/Mental Status: alert, normal affect, normal mood - Problem List Review Problem List Initiated/Reviewed/Updated: Yes - My Orders Last 24 Hours: Active Orders 24 hr Category Date Time Status Patient Status [ADT] Routine ADT 02/26/17 12:18 Active Antiembolic Devices [RC] PER UNIT ROUTINE Care 02/26/17 12:19 Active Notify Provider Vital Signs [RC] ASDIRECTED Care 02/26/17 12:18 Active RT Incentive Spirometry [RC] Q2HWA Care 02/26/17 12:18 Active Up With Assistance [RC] PER UNIT ROUTINE Care 02/26/17 12:18 Active Up ad Chloe [RC] PER UNIT ROUTINE Care 02/26/17 12:18 Active Vital Signs [RC] PER UNIT ROUTINE Care 02/26/17 12:18 Active Regular Diet [DIET] Diet 02/26/17 Dinner Active RED BLOOD CELLS LP [BBK] Stat Lab 02/26/17 10:27 Results Acetaminophen/oxyCODONE [Percocet 325-5 MG] Med 02/26/17 12:18 Active 2 tab PO Q4H PRN Ketorolac [Toradol] Med 02/26/17 12:18 Active 30 mg IVPUSH Q6H PRN Morphine Med 02/26/17 12:41 Active 2 mg IVPUSH .Q5MIN PRN Morphine Med 02/26/17 12:18 Active 4 mg IVPUSH Q2H PRN Ondansetron [Zofran] Med 02/26/17 12:18 Active 4 mg IVPUSH Q6H PRN Promethazine [Phenergan] Med 02/26/17 12:18 Active 25 mg IM Q6H PRN diphenhydrAMINE [Benadryl] Med 02/26/17 13:45 Active 25 mg IVPUSH .ONETIME Peripheral IV Discontinue [OM.PC] Routine Oth 02/26/17 12:18 Ordered Sequential Compression Device [OM.PC] Per Unit Routine Oth 02/26/17 12:18 Ordered Transfuse Red Blood Cells [COMM] Stat Oth 02/26/17 11:08 Ordered Transfuse Red Blood Cells [COMM] Stat Oth 02/26/17 11:19 Ordered Resuscitation Status Routine Resus Stat 02/26/17 12:18 Ordered Medication Orders Diphenhydramine HCl (Benadryl) 25 mg IVPUSH .ONETIME JEFF Last Admin: 02/26/17 13:47 Dose: 25 mg Lactated Ringer's (Ringers, Lactated) 1,000 mls @ 125 mls/hr IV ASDIRECTED JEFF Last Admin: 02/26/17 08:20 Dose: 125 mls/hr Ketorolac Tromethamine (Toradol) 30 mg IVPUSH Q6H PRN PRN Reason: Pain (severe 7-10) Stop: 03/03/17 12:18 Last Admin: 02/27/17 02:45 Dose: 30 mg Admin: 02/26/17 18:07 Dose: 30 mg Admin: 02/26/17 13:00 Dose: 30 mg Morphine Sulfate (Morphine) 4 mg IVPUSH Q2H PRN PRN Reason: Pain (severe 7-10) Last Admin: 02/27/17 04:41 Dose: 4 mg Morphine Sulfate (Morphine) 2 mg IVPUSH .Q5MIN PRN PRN Reason: Pain Stop: 03/02/17 12:42 Last Admin: 02/26/17 13:40 Dose: 2 mg Ondansetron HCl (Zofran) 4 mg IVPUSH Q6H PRN PRN Reason: Nausea/Vomiting Last Admin: 02/26/17 17:35 Dose: 4 mg Oxycodone/Acetaminophen (Percocet 325-5 Mg) 2 tab PO Q4H PRN PRN Reason: Pain (moderate 4-6) Last Admin: 02/27/17 09:37 Dose: 2 tab Admin: 02/26/17 22:26 Dose: 1 tab Admin: 02/26/17 20:19 Dose: 1 tab Admin: 02/26/17 16:18 Dose: 2 tab Promethazine HCl (Phenergan) 25 mg IM Q6H PRN PRN Reason: Nausea/Vomiting Last Admin: 02/26/17 18:07 Dose: 25 mg Sodium Chloride (Saline Flush) 10 ml FLUSH ASDIRECTED PRN PRN Reason: Keep Vein Open Sodium Chloride (Saline Flush) 2.5 ml FLUSH ASDIRECTED PRN PRN Reason: Keep Vein Open - Assessment Assessment (Free Text/Narrative):: Status post total laparoscopic hysterectomy and laparoscopic bilateral salpingo- oophorectomy and cystoscopy postoperative day #1 vision doing well she is on regular diet she is ambulatory incision is clean and dry there is no bleeding vaginally had lab work is a stable - Plan Plan (Free Text/Narrative):: Patient sent home with post hysterectomy instruction prescription for Percocet 7.5/325 is given to the patient followup in one week
[2017-02-27] MEDS: Ondansetron 4 MG/2 ML SDV IVPUSH PRN (11:25)
--- NOTE | 2017-02-28 09:48 | PCM48HPAN ---
Post Anesthesia Note - EVALUATION WITHIN 48HRS OF ANESTHETIC Vital Signs in Normal Range: Yes Patient Participated in Evaluation: No (Pt discharged without notification to anesthesia) Respiratory Function Stable: Yes Airway Patent: Yes Cardiovascular Function Stable: Yes Hydration Status Stable: Yes Pain Control Satisfactory: Yes Nausea and Vomiting Control Satisfactory: Yes Mental Status Recovered: Yes - COMMENTS/OBSERVATIONS Free Text/Narrative:: Information per nursing report.
== END 2017-02-26 11:35 | disposition home or self-care (01) ==
LOC: MW.SDS 07:40 → MW.OB 14:55 → UNDOADMOB 14:55 → UNDODISOB 02-27 11:35
PROVIDERS: ATTEND Obstetrics & Gynecology
PROC: 0UT94ZZ Resection of Uterus, Percutaneous Endoscopic Approach (ICD-10-PCS; principal; 2017-02-26)
PROC: 0UTC4ZZ Resection of Cervix, Percutaneous Endoscopic Approach (ICD-10-PCS; 2017-02-26)
PROC: 0UT24ZZ Resection of Bilateral Ovaries, Percutaneous Endoscopic Approach (ICD-10-PCS; 2017-02-26)
PROC: 0UT74ZZ Resection of Bilateral Fallopian Tubes, Percutaneous Endoscopic Approach (ICD-10-PCS; 2017-02-26)
PROC: 0TJB8ZZ Inspection of Bladder, Via Natural or Artificial Opening Endoscopic (ICD-10-PCS; 2017-02-26)
DX: N92.1 Excessive and frequent menstruation with irregular cycle (principal); D64.9 Anemia, unspecified; E11.9 Type 2 diabetes mellitus without complications; E78.5 Hyperlipidemia, unspecified; N85.2 Hypertrophy of uterus; I10 Essential (primary) hypertension; E66.9 Obesity, unspecified; Z12.4 Encounter for screening for malignant neoplasm of cervix; N39.3 Stress incontinence (female) (male); R93.8 Abnormal findings on diagnostic imaging of other specified body structures
CPT/HCPCS: 36415; 36430; 52000; 58573; 80048; 82962; 84703; 85025; 85027; 85384; 85610; 85730; 86850; 86900; 86901; 86920; 86921; 86922; 88309; A9270; J0610; J0690; J1170; J1200; J1885; J1940; J2250; J2270; J2300; J2405; J2550; J7120; P9016; 00944; J2704

== ENCOUNTER → 2017-03-17 | Outpatient (CLI) | payer OTHER, MEDICAID ==
[2017-03-17 12:17] LABS: CHLORIDE,CL 104 mmol/L (98-110); SODIUM,NA 142 mmol/L (136-146)
--- NOTE | 2017-03-17 14:32 | CR ---
EXAMINATION: Abdomen HISTORY: Pain COMPARISON: CT dated 02/09/2017 TECHNIQUE: Pain FINDINGS: There is a moderate amount of stool and gas noted throughout the colon. Clips are noted wi thin the right upper quadrant. No dilated loops of small bowel. The visualized osseous structures ap pear normal. No organomegaly or abnormal calcifications. IMPRESSION: Stool and gas noted throughout the colon, most likely representing mild constipation.
== END ==
LOC: MW.CHOBGYN 11:45
PROVIDERS: ATTEND Obstetrics & Gynecology
DX: R53.83 Other fatigue (principal); R10.9 Unspecified abdominal pain; Z90.710 Acquired absence of both cervix and uterus; Z98.890 Other specified postprocedural states; R30.9 Painful micturition, unspecified; N39.0 Urinary tract infection, site not specified
CPT/HCPCS: 36415; 74000; 74000-26; 80048; 81001; 85025; 87086; 87088; 87186

== ENCOUNTER → 2017-04-13 | Outpatient (CLI) | payer OTHER, MEDICAID | LOC: MW.CHOBGYN 15:02 | PROVIDERS: ATTEND Obstetrics & Gynecology | DX: Z09 Encounter for follow-up examination after completed treatment for conditions other than malignant neoplasm (principal); N39.0 Urinary tract infection, site not specified | CPT/HCPCS: 81001; 87086 ==

== ENCOUNTER 2018-07-12 11:36 | Observation (INO) | payer MEDICAID ==
[2018-07-12] MEDS ORDERED: Sodium Chloride 0.9% 1,000 ML IV ONE (11:39)
[2018-07-12] MEDS ORDERED: Ketorolac 30 MG/ML SDV IVPUSH ONE (11:39)
[2018-07-12] MEDS ORDERED: Ondansetron 4 MG/2 ML SDV IVPUSH ONE ×2 (11:39→14:06)
--- NOTE | 2018-07-12 11:40 | EDM.PDOC ---
ED HPI GENERAL MEDICAL PROBLEM - General Stated Complaint: KIDNEY STONES Time Seen by Provider: 07/12/18 11:38 Source of Information: Reports: Patient History Limitations: Reports: No Limitations - History of Present Illness INITIAL COMMENTS - FREE TEXT/NARRATIVE: HISTORY AND PHYSICAL: History of present illness: Patient is a 48-year-old female who presents to the emergency room with complaints of right flank pain that radiates into her right groin. She states she has a long-standing history of frequent UTIs within the last year since having a total hysterectomy. She also has had kidney stones in the past. She took a [id number] UTI screening test which she states was positive. She is concerned she either has a kidney stone or UTI that is causing her discomfort. She has nausea, vomiting along with the flank and abdominal pain. She denies any changes in her bowel. She denies any dysuria (but port she never has any pain with urination with her UTIs). Denies any fever, chills, chest pain, shortness of breath, diarrhea, constipation Review of systems: As per history of present illness and below otherwise all systems reviewed and negative. Past medical history: As per history of present illness and as reviewed below otherwise noncontributory. Surgical history: As per history of present illness and as reviewed below otherwise noncontributory. Social history: No reported history of drug or alcohol abuse. Family history: As per history of present illness and as reviewed below otherwise noncontributory. Physical exam: General: Well-developed and well-nourished 48-year-old female. Alert and oriented. Nontoxic appearing and in no acute distress. HEENT: Atraumatic, normocephalic, pupils equal and reactive bilaterally, negative for conjunctival pallor or scleral icterus, mucous membranes moist, throat clear, neck supple, nontender, trachea midline. No drooling or trismus noted. No meningeal signs Lungs: Clear to auscultation, breath sounds equal bilaterally, chest nontender. Heart: S1S2, regular rate and rhythm without overt murmur Abdomen: Soft, nondistended, right upper and lower abdominal tenderness. Negative for masses or hepatosplenomegaly. Right sided costovertebral tenderness. Pelvis: Stable nontender. Genitourinary: Deferred. Rectal: Deferred. Skin: Intact, warm, dry. No lesions or rashes noted. Extremities: Atraumatic, negative for cords or calf pain. Neurovascular unremarkable. Neuro: Awake, alert, oriented. Cranial nerves II through XII unremarkable. Cerebellum unremarkable. Motor and sensory unremarkable throughout. Exam nonfocal. Notes: Lab work is unremarkable. CT shows mild to moderate infiltrate of the liver but no evidence of kidney stone or pyelonephritis. Patient states that she is currently comfortable but "as soon as the medicine wears off it comes right back ". We did discuss home pain medications. She states she feels uncomfortable going home as she has had severe infections in the past which has caused her to be hospitalized. Dr. Jama was consulted on this case and he will come down to see the patient. 1420: Dr Jama here to see patient Diagnostics: CBC, CMP, UA, amylase, lipase, CT abdomen and pelvis Therapeutics: IV fluid, Zofran, Toradol, morphine Impression: Intractible abdominal and flank pain Plan: Observation admission to Med/surg Definitive disposition and diagnosis as appropriate pending reevaluation and review of above. Duration: Day(s): Location: Reports: Abdomen, Back flank Pain Score (Numeric/FACES): 10 - Related Data Allergies Allergy/AdvReac Type Severity Reaction Status Date / Time fentanyl Allergy Hives Verified 07/12/18 11:40 Home Meds: Home Meds glipiZIDE [Glucotrol XL] 10 mg PO DAILY 02/09/17 [History] metFORMIN HCl [Metformin HCl] 1,000 mg PO BID 02/09/17 [History] Albuterol Sulfate [Proair Hfa] 1 - 2 puff INH ASDIRECTED PRN 02/23/17 [History] Losartan/Hydrochlorothiazide [Losartan-HCTZ 50-12.5 MG] 1 tab PO BEDTIME [History] rOPINIRole HCl [Requip] 2 mg PO BEDTIME 02/23/17 [History] Past Medical History Cardiovascular History: Reports: Hypertension Respiratory History: Reports: Asthma, Other (See Below) Other Respiratory History: seasonal asthma Gastrointestinal History: Reports: None Genitourinary History: Reports: Renal Calculus Other Genitourinary History: hx kidney stones, stress incontinence 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 ED EXAM, GI/ABD - Physical Exam Exam: See Below (See dictation) Course - Vital Signs Last Recorded V/S: Last Vital Signs Temp 97.0 F 07/12/18 11:41 Pulse 72 07/12/18 13:40 Resp 16 07/12/18 13:40 BP 173/86 H 07/12/18 13:40 Pulse Ox 98 07/12/18 13:40 - Orders/Labs/Meds Orders: Active Orders 24 hr Category Date Time Status Admission Status [Patient Status] [ADT] Stat ADT 07/12/18 14:41 Ordered CULTURE URINE [RM] Stat Lab 07/12/18 14:05 Received UA W/MICROSCOPIC [URIN] Stat Lab 07/12/18 12:17 Ordered Labs: Laboratory Tests 07/12/18 07/12/18 07/12/18 Range/Units 11:58 11:58 12:17 WBC 9.02 (4.0-11.0) K/uL RBC 4.57 (4.30-5.90) M/uL Hgb 13.8 (12.0-16.0) g/dL Hct 40.4 (36.0-46.0) % MCV 88.4 (80.0-98.0) fL MCH 30.2 (27.0-32.0) pg MCHC 34.2 (31.0-37.0) g/dL RDW Std Deviation 43.5 (28.0-62.0) fl RDW Coeff of Jaylan 13 (11.0-15.0) % Plt Count 236 (150-400) K/uL MPV 11.90 (7.40-12.00) fL Neut % (Auto) 67.1 (48.0-80.0) % Lymph % (Auto) 21.2 (16.0-40.0) % [place] % (Auto) 7.1 (0.0-15.0) % Eos % (Auto) 4.2 (0.0-7.0) % Baso % (Auto) 0.4 (0.0-1.5) % Neut # (Auto) 6.1 H (1.4-5.7) K/uL Lymph # (Auto) 1.9 (0.6-2.4) K/uL [place] # (Auto) 0.6 (0.0-0.8) K/uL Eos # (Auto) 0.4 (0.0-0.7) K/uL Baso # (Auto) 0.0 (0.0-0.1) K/uL Nucleated RBC % 0.0 /100WBC Nucleated RBCs # 0 K/uL Sodium 135 L (136-145) mmol/L Potassium 3.9 (3.5-5.1) mmol/L Chloride 98 (98-107) mmol/L Carbon Dioxide 24.6 (21.0-32.0) mmol/L BUN 15 (7.0-18.0) mg/dL Creatinine 1.1 H (0.6-1.0) mg/dL Est Cr Clr Drug Dosing 52.84 mL/min Estimated GFR (MDRD) 52.6 ml/min Glucose 322 H (74-106) mg/dL Calcium 9.8 (8.5-10.1) mg/dL Total Bilirubin 0.5 (0.2-1.0) mg/dL AST 22 (15-37) IU/L ALT 37 (14-63) IU/L Alkaline Phosphatase 87 (46-116) U/L Total Protein 7.5 (6.4-8.2) g/dL Albumin 3.7 (3.4-5.0) g/dL Globulin 3.8 H (2.0-3.5) g/dL Albumin/Globulin Ratio 1.0 L (1.3-2.8) Amylase 43 (25-115) U/L Lipase 139 (73-393) U/L Urine Color YELLOW Urine Appearance CLEAR Urine pH 6.0 (5.0-8.0) Ur Specific [place] 1.020 (1.001-1.035) Urine Protein TRACE (NEGATIVE) mg/dL Urine Glucose (UA) 500 H (NEGATIVE) mg/dL Urine Ketones NEGATIVE (NEGATIVE) mg/dL Urine Occult Blood NEGATIVE (NEGATIVE) Urine Nitrite NEGATIVE (NEGATIVE) Urine Bilirubin NEGATIVE (NEGATIVE) Urine Urobilinogen 0.2 (<2.0) EU/dL Ur Leukocyte Esterase NEGATIVE (NEGATIVE) Urine RBC NONE SEEN (0-2/HPF) Urine WBC 0-1 (0-5/HPF) Ur Epithelial Cells FEW (NONE-FEW) Urine Bacteria FEW (NEGATIVE) Meds: Medications Discontinued Medications Generic Name Dose Route Start Last Admin Trade Name Berna PRN Reason Stop Dose Admin Sodium Chloride 1,000 mls @ 999 mls/hr 07/12/18 11:39 07/12/18 11:58 Normal Saline IV 07/12/18 12:39 999 mls/hr STAT ONE Administration Iopamidol 90 ml 07/12/18 13:07 07/12/18 13:07 Isovue Multipack-370 (76%) IVPUSH 07/12/18 13:08 90 ml ONETIME STA Administration Ketorolac Tromethamine 30 mg 07/12/18 11:39 07/12/18 12:00 Toradol IVPUSH 07/12/18 11:40 30 mg ONETIME ONE Administration Morphine Sulfate 2 mg 07/12/18 11:54 07/12/18 12:26 Morphine IVPUSH 07/12/18 11:55 2 mg ONETIME ONE Administration Morphine Sulfate 2 mg 07/12/18 13:24 07/12/18 13:37 Morphine IVPUSH 07/12/18 13:25 2 mg ONETIME ONE Administration Ondansetron HCl 4 mg 07/12/18 11:39 07/12/18 12:01 Zofran IVPUSH 07/12/18 11:40 4 mg ONETIME ONE Administration Ondansetron HCl 4 mg 07/12/18 14:06 07/12/18 14:14 Zofran IVPUSH 07/12/18 14:07 4 mg ONETIME ONE Administration Departure - Departure Time of Disposition: 14:42 Disposition: Refer to Observation Clinical Impression: Intractable abdominal pain, Flank pain - Discharge Information Referrals: PCP,None [Primary Care Provider] - - My Orders Last 24 Hours: My Active Orders 07/12/18 12:17 UA W/MICROSCOPIC [URIN] Stat 07/12/18 14:05 CULTURE URINE [RM] Stat 07/12/18 14:41 Admission Status [Patient Status] [ADT] Stat - Assessment/Plan Last 24 Hours: My Active Orders 07/12/18 12:17 UA W/MICROSCOPIC [URIN] Stat 07/12/18 14:05 CULTURE URINE [RM] Stat 07/12/18 14:41 Admission Status [Patient Status] [ADT] Stat
[2018-07-12] MEDS ORDERED: Morphine 2 MG/ML Syringe IVPUSH ONE ×2 (11:54→13:24)
[2018-07-12] MEDS ORDERED: Iopamidol 755 MG/ML 500 ML Multipack Bottle IVPUSH STA (13:07)
--- NOTE | 2018-07-12 13:40 | CT ---
CT of the abdomen and pelvis with and without contrast. HISTORY: Pain TECHNIQUE: Axial CT images were obtained of the abdomen and pelvis before and following administratio n of 90 mL of Isovue-370 in the right antecubital fossa without complication. Coronal and sagittal re constructions obtained. FINDINGS: The lung bases are clear, no pleural effusion. There is severe fatty infiltration of the liver. Cholecystectomy. The spleen is unremarkable. There i s a 1.6 cm left adrenal nodule noted, stable. No bulky retroperitoneal lymphadenopathy or abdominal a scites. The kidneys enhance and function symmetrically without evidence of obstructive uropathy. The large and small bowel are normal in caliber without evidence of obstruction. The appendix appears normal. No focal pericolonic inflammation or stranding. Minimal diverticulosis without evidence of d iverticulitis. Urinary bladder is decompressed. No suspicious osseous abnormalities identified. Endplate degenerative changes noted at L5-S1. IMPRESSION: 1. No acute findings noted within the abdomen or pelvis. 2. Moderate to severe fatty infiltration of the liver.
[2018-07-12] MEDS ORDERED: Acetaminophen 325 MG Tab PO PRN (15:29)
[2018-07-12] MEDS ORDERED: Ibuprofen 400 MG Tab PO PRN (15:29)
[2018-07-12] MEDS ORDERED: cefTRIAXone 1 GM in Sodium Chloride 0.9% 50 ML IV SCH (15:30)
[2018-07-12] MEDS ORDERED: Albuterol 8 GM Inhaler INH PRN (15:40)
--- NOTE | 2018-07-12 15:45 | PCM.HP ---
H&P History of Present Illness - General Date of Service: 07/13/18 Admit Problem/Dx: Admission Diagnosis/Problem Admission Diagnosis/Problem Flank pain - History of Present Illness Initial Comments - Free Text/Narative: 48 yo female with pmh of DM, HTN and frequent UTIs. Patient reports one day history of right flank pain that radiates to the groin. She reports some dysuria , and mild fevers and chills last night. She states these symptoms are similar to what she expirenced last March when she was admitted in [facility] for a kidney infection with stones. In the ED she had a CT scan of abdomen which did not show any signs of pyelonephritis or stones. flank Pain Score (Numeric/FACES): 10 - Related Data Allergies/Adverse Reactions: Allergies Allergy/AdvReac Type Severity Reaction Status Date / Time fentanyl Allergy Hives Verified 07/12/18 11:40 Home Medications: Home Meds glipiZIDE [Glucotrol XL] 10 mg PO DAILY 02/09/17 [History] metFORMIN HCl [Metformin HCl] 1,000 mg PO BID 02/09/17 [History] Albuterol Sulfate [Proair Hfa] 1 - 2 puff INH ASDIRECTED PRN 02/23/17 [History] Losartan/Hydrochlorothiazide [Losartan-HCTZ 50-12.5 MG] 1 tab PO BEDTIME [History] rOPINIRole HCl [Requip] 2 mg PO BEDTIME 02/23/17 [History] oxyCODONE 5 mg PO Q6H PRN #8 tablet 07/13/18 [Rx] Past Medical History HEENT History: Reports: None Cardiovascular History: Reports: Hypertension Respiratory History: Reports: Asthma, Other (See Below) Other Respiratory History: seasonal asthma Gastrointestinal History: Reports: None Genitourinary History: Reports: Renal Calculus Other Genitourinary History: hx kidney stones, stress incontinence 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: Musculoskeletal History: Reports: None Neurological History: Reports: None Psychiatric History: Reports: None Endocrine/Metabolic History: Reports: Diabetes, Type II, Obesity/BMI 30+ Hematologic History: Reports: None Immunologic History: Reports: None Oncologic (Cancer) History: Reports: None Dermatologic History: Reports: None - Infectious Disease History Infectious Disease History: Reports: Chicken Pox - Past Surgical History Musculoskeletal Surgical History: Reports: Shoulder Surgery Social & Family History - Family History Family Medical History: Noncontributory - Tobacco Use Smoking Status *Q: Never Smoker Second Hand Smoke Exposure: No - Caffeine Use Caffeine Use: Reports: None - Recreational Drug Use Recreational Drug Use: No H&P Review of Systems - Review of Systems: Review Of Systems: ROS reveals no pertinent complaints other than HPI. Exam - Exam Exam: See Below - Vital Signs Vital Signs: Last Vital Signs Temp 36.9 C 07/12/18 15:38 Pulse 87 07/12/18 15:38 Resp 16 07/12/18 15:38 BP 139/102 H 07/12/18 15:38 Pulse Ox 98 07/12/18 15:38 Weight: 99.79 kg - Exam General: Alert, Oriented HEENT: Mucosa Moist & [place] Neck: Supple Lungs: Clear to Auscultation, Normal Respiratory Effort Cardiovascular: Regular Rate, Regular Rhythm GI/Abdominal Exam: Normal Bowel Sounds, Soft, Non-Tender, No Distention, No Mass Back Exam: Full Range of Motion, CVA Tenderness (R) Skin: Warm, Dry, Intact Neurological: No: Focal Deficit - Patient Data Lab Results Last 24 hrs: Laboratory Results - last 24 hr 07/12/18 07/12/18 07/12/18 Range/Units 11:58 11:58 12:17 WBC 9.02 (4.0-11.0) K/uL RBC 4.57 (4.30-5.90) M/uL Hgb 13.8 (12.0-16.0) g/dL Hct 40.4 (36.0-46.0) % MCV 88.4 (80.0-98.0) fL MCH 30.2 (27.0-32.0) pg MCHC 34.2 (31.0-37.0) g/dL RDW Std Deviation 43.5 (28.0-62.0) fl RDW Coeff of Jaylan 13 (11.0-15.0) % Plt Count 236 (150-400) K/uL MPV 11.90 (7.40-12.00) fL Neut % (Auto) 67.1 (48.0-80.0) % Lymph % (Auto) 21.2 (16.0-40.0) % [place] % (Auto) 7.1 (0.0-15.0) % Eos % (Auto) 4.2 (0.0-7.0) % Baso % (Auto) 0.4 (0.0-1.5) % Neut # (Auto) 6.1 H (1.4-5.7) K/uL Lymph # (Auto) 1.9 (0.6-2.4) K/uL [place] # (Auto) 0.6 (0.0-0.8) K/uL Eos # (Auto) 0.4 (0.0-0.7) K/uL Baso # (Auto) 0.0 (0.0-0.1) K/uL Nucleated RBC % 0.0 /100WBC Nucleated RBCs # 0 K/uL Sodium 135 L (136-145) mmol/L Potassium 3.9 (3.5-5.1) mmol/L Chloride 98 (98-107) mmol/L Carbon Dioxide 24.6 (21.0-32.0) mmol/L BUN 15 (7.0-18.0) mg/dL Creatinine 1.1 H (0.6-1.0) mg/dL Est Cr Clr Drug Dosing 52.84 mL/min Estimated GFR (MDRD) 52.6 ml/min Glucose 322 H (74-106) mg/dL Calcium 9.8 (8.5-10.1) mg/dL Total Bilirubin 0.5 (0.2-1.0) mg/dL AST 22 (15-37) IU/L ALT 37 (14-63) IU/L Alkaline Phosphatase 87 (46-116) U/L Total Protein 7.5 (6.4-8.2) g/dL Albumin 3.7 (3.4-5.0) g/dL Globulin 3.8 H (2.0-3.5) g/dL Albumin/Globulin Ratio 1.0 L (1.3-2.8) Amylase 43 (25-115) U/L Lipase 139 (73-393) U/L Urine Color YELLOW Urine Appearance CLEAR Urine pH 6.0 (5.0-8.0) Ur Specific [place] 1.020 (1.001-1.035) Urine Protein TRACE (NEGATIVE) mg/dL Urine Glucose (UA) 500 H (NEGATIVE) mg/dL Urine Ketones NEGATIVE (NEGATIVE) mg/dL Urine Occult Blood NEGATIVE (NEGATIVE) Urine Nitrite NEGATIVE (NEGATIVE) Urine Bilirubin NEGATIVE (NEGATIVE) Urine Urobilinogen 0.2 (<2.0) EU/dL Ur Leukocyte Esterase NEGATIVE (NEGATIVE) Urine RBC NONE SEEN (0-2/HPF) Urine WBC 0-1 (0-5/HPF) Ur Epithelial Cells FEW (NONE-FEW) Urine Bacteria FEW (NEGATIVE) Result Diagrams: 07/13/18 05:37 07/13/18 05:37 Problem List Initiated/Reviewed/Updated: Yes Orders Last 24hrs: Active Orders 24 hr Category Date Time Status Admission Status [Patient Status] [ADT] Stat ADT 07/12/18 14:41 Active Blood Glucose Check, Bedside [RC] TIDMEALS Care 07/12/18 15:29 Ordered Oxygen Therapy [RC] PRN Care 07/12/18 15:29 Ordered Up ad Chloe [RC] ASDIRECTED Care 07/12/18 15:29 Ordered VTE/DVT Education [RC] PER UNIT ROUTINE Care 07/12/18 15:29 Ordered Vital Signs [RC] Q4H Care 07/12/18 15:29 Ordered [place] [employer] Diet [DIET] Diet 07/12/18 Breakfast Ordered BASIC METABOLIC PANEL,BMP [CHEM] AM Lab 07/13/18 05:11 Ordered CBC W/O DIFF,HEMOGRAM [HEME] AM Lab 07/13/18 05:11 Ordered CULTURE URINE [RM] Stat Lab 07/12/18 14:05 Received DRUG SCREEN, URINE [URCHEM] Routine Lab 07/12/18 15:19 Ordered UA W/MICROSCOPIC [URIN] Stat Lab 07/12/18 12:17 Ordered Acetaminophen [Tylenol] Med 07/12/18 15:29 Ordered 650 mg PO Q4H PRN Ibuprofen [Motrin] Med 07/12/18 15:29 Ordered 400 mg PO Q6H PRN Ondansetron [Zofran] Med 07/12/18 15:29 Ordered 4 mg IVPUSH Q4H PRN cefTRIAXone [Rocephin] 1,000 mg Med 07/12/18 15:30 Ordered Sodium Chloride 0.9% [Normal Saline] 50 ml IV Q24H oxyCODONE Med 07/12/18 15:28 Ordered 5 mg PO Q4H PRN Sequential Compression Device [OM.PC] Per Unit Routine Oth 07/12/18 15:30 Ordered Resuscitation Status Routine Resus Stat 07/12/18 15:29 Ordered Medication Orders Acetaminophen (Tylenol) 650 mg PO Q4H PRN PRN Reason: Pain (Mild 1-3)/fever Ceftriaxone Sodium 1 gm/ (Sodium Chloride) 50 mls @ 100 mls/hr IV Q24H JEFF Ibuprofen (Motrin) 400 mg PO Q6H PRN PRN Reason: Pain (mild 1-3) Ondansetron HCl (Zofran) 4 mg IVPUSH Q4H PRN PRN Reason: Pain Oxycodone HCl (Oxycodone) 5 mg PO Q4H PRN PRN Reason: Pain Assessment/Plan Comment:: 48 yo female admitted with intractable right flank pain. She was given IV Rocephin and monitored overnight. No source of flank pain identified. She was monitored overnight with no events. Pain was better controlled on oxycodone. She was discharged home with Oxycodone 5mg q 6hrs prn #8 tabs. She is to follow up with Dr. Menon and Dr. Burnette.
[2018-07-12] MEDS: oxyCODONE 5 MG Tab PO PRN ×2 (15:48→20:09)
[2018-07-12] MEDS: Insulin Aspart 100 Units/ML 3 ML Pen SUBCUT SCH (17:00)
[2018-07-12] MEDS ORDERED: rOPINIRole 1 MG Tab PO SCH (21:00)
[2018-07-12] MEDS ORDERED: Hydrochlorothiazide/Losartan 12.5-50 mg Tab PO SCH (21:00)
[2018-07-12] MEDS: Ondansetron 4 MG/2 ML SDV IVPUSH PRN (23:12)
[2018-07-13] MEDS: oxyCODONE 5 MG Tab PO PRN ×2 (00:26→09:16)
[2018-07-13] MEDS: Insulin Aspart 100 Units/ML 3 ML Pen SUBCUT SCH ×2 (07:35→12:20)
[2018-07-13] MEDS: Ondansetron 4 MG/2 ML SDV IVPUSH PRN (10:39)
[2018-07-13 11:52] VITALS: BP 119/70
== END 2018-07-13 12:39 | disposition home or self-care (01) ==
LOC: MW.ED 11:36 → MW.MS 14:41
PROVIDERS: ADMIT Internal Medicine; ATTEND Internal Medicine
DX: R10.9 Unspecified abdominal pain (principal); I10 Essential (primary) hypertension; E11.9 Type 2 diabetes mellitus without complications; E66.9 Obesity, unspecified; J45.998 Other asthma; K76.0 Fatty (change of) liver, not elsewhere classified; Z87.442 Personal history of urinary calculi; Z87.440 Personal history of urinary (tract) infections; Z79.84 Long term (current) use of oral hypoglycemic drugs; Z88.5 Allergy status to narcotic agent
CPT/HCPCS: 36415; 74178; 80048; 80053; 80305; 81001; 82150; 82962; 83690; 85025; 85027; 87086; 96361; 96374; 96375; 96376; 99285; A9270; G0378; J0696; J1815; J1885; J2270; J2405; J7040; J7050; Q9967; 99283